=== PATIENT | female | born 1995 | race Caucasian/White ===

== ENCOUNTER 2019-07-03 19:52 | Emergency (ER) | payer MEDICAID, OTHER ==
[2019-07-03 20:36] VITALS: BP 105/66; PULSE 91; O2SAT 95
[2019-07-03] MEDS ORDERED: Adacel Vial IM ONE ×2 (21:10→21:13)
[2019-07-03] MEDS ORDERED: BACIGUENT PACKET ONE (21:35)
--- NOTE | 2019-07-03 21:40 | ERPHSYRPT ---
- History of Present Illness Time Seen by Provider: 07/03/19 21:40 Source: patient, family Exam Limitations: no limitations Patient Subjective Stated Complaint: pt states, "I was washing dishes and cut my hand on a knife". Triage Nursing Assessment: Laceration to rt wrist 4.0 cm L x 0.7 cm W x 0.2 cm D. Laceration was cleansed with NS and hibiclens, guaze covering at this time, not currently bleeding. Wound is beefy red and clean/healthy. Lungs clear, heart tones reg, abd soft with active bs x4 quad, nontender. Physician History: pt accidently cut her right distal forearm no other injuries - tendon fuction/ neurovasc intact without FB after irrigation and probing of wound Quality: painful Severity: moderate Location: extremities Possible Causes: other (incised wound right forearm) Associated Symptoms: denies symptoms Allergies/Adverse Reactions: No Known Drug Allergies Allergy (Unverified 07/03/19 20:48) Hx Tetanus, Diphtheria Vaccination/Date Given: No Hx Influenza Vaccination/Date Given: No Hx Pneumococcal Vaccination/Date Given: No Immunizations Up to Date: No - Review of Systems Constitutional: No Fever, No Chills Eyes: No Symptoms Ears, Nose, & Throat: No Symptoms Respiratory: No Cough, No Dyspnea Cardiac: No Chest Pain, No Edema, No Syncope Abdominal/Gastrointestinal: No Abdominal Pain, No Nausea, No Vomiting, No Diarrhea Genitourinary Symptoms: No Dysuria Musculoskeletal: No Back Pain, No Neck Pain Skin: Other (lac right forearm distal), No Rash Neurological: No Dizziness, No Focal Weakness, No Sensory Changes Psychological: No Symptoms Endocrine: No Symptoms All Other Systems: Reviewed and Negative - Past Medical History Pertinent Past Medical History: Yes Neurological History: No Pertinent History ENT History: No Pertinent History Cardiac History: No Pertinent History Respiratory History: No Pertinent History Endocrine Medical History: No Pertinent History Musculoskeletal History: No Pertinent History GI Medical History: Hernia History: No Pertinent History Psycho-Social History: Anxiety Female Reproductive Disorders: Endometriosis, Other Other Medical History: PCOS - Past Surgical History Past Surgical History: Yes Neuro Surgical History: No Pertinent History Cardiac: No Pertinent History Respiratory: No Pertinent History Gastrointestinal: Hernia Repair Genitourinary: No Pertinent History Musculoskeletal: No Pertinent History Female Surgical History: No Pertinent History - Social History Smoking Status: Current every day smoker How long have you smoked: 4 yrs Exposure to second hand smoke: Yes Drug Use: none Patient Lives Alone: No - Female History Hx Last Menstrual Period: 06/19/19 Hx Now: No - Nursing Vital Signs Nursing Vital Signs: Initial Vital Signs Temperature 98.6 F 07/03/19 20:34 Pulse Rate 91 H 07/03/19 20:34 Respiratory Rate 17 07/03/19 20:34 Blood Pressure 105/66 07/03/19 20:34 O2 Sat by Pulse Oximetry 95 07/03/19 20:34 Pain Scale Pain Intensity 7 - Physical Exam General Appearance: no apparent distress, alert Eye Exam: PERRL/EOMI, eyes nml inspection Ears, Nose, Throat Exam: normal ENT inspection, pharynx normal, moist mucous membranes Neck Exam: normal inspection, non-tender, supple, full range of motion Respiratory Exam: normal breath sounds, lungs clear, No respiratory distress Cardiovascular Exam: regular rate/rhythm, normal heart sounds Gastrointestinal/Abdomen Exam: soft, mass, No tenderness Pelvic Exam: not done, deferred Rectal Exam: deferred, not done Back Exam: normal inspection, normal range of motion, No CVA tenderness, No vertebral tenderness Extremity Exam: normal range of motion, other (underlying bone nontender full ROM - lac right forearm) Neurologic Exam: alert, oriented x 3, cooperative, normal mood/affect, sensation nml, No motor deficits Skin Exam: normal color, warm, dry SpO2 Interpretation: normal SpO2: 95 Procedures - Laceration/Wound Repair Right Distal Arm Wound Location: Right, lower arm Wound Length (cm): 8 Wound's Depth, Shape: irregular, into subcut Wound Explored: clean Irrigated: Yes (ns 100 cc) Hibiclens Prep: Yes Anesthesia: local, 1% Lidocaine Volume Anesthetic (ccs): 4 Wound Debrided: minimal Wound Repaired With: sutures Suture Size/Type: 4-0, ethilon Number of Sutures: 9 (2 mattress 7 interupted) Layer Closure?: No Sterile Dressing Applied?: Yes Splint Applied?: No Sling Applied?: No - Course Nursing assessment & vital signs reviewed: Yes Ordered Tests: Medication Summary Discontinued Medications Generic Name Dose Route Start Last Admin Trade Name Freq PRN Reason Stop Dose Admin Bacitracin Zinc Confirm 07/03/19 21:35 Baciguent Packet Administered 07/03/19 21:36 Dose 1 gm .ROUTE .STK-MED ONE Diphtheria/Tetanus/Acell Pertussis 0.5 ml 07/03/19 21:10 Adacel Vial IM 07/03/19 21:11 .ONCE ONE Diphtheria/Tetanus/Acell Pertussis Confirm 07/03/19 21:13 Adacel Vial Administered 07/03/19 21:14 Dose 0.5 ml IM .STK-MED ONE - Progress Progress: improved, re-examined Counseled pt/family regarding: diagnosis, need for follow-up - Departure Departure Disposition: Home Clinical Impression: laceration right distal forearm Condition: Good Critical Care Time: No Referrals: REFUGIO RATLIFF [Primary Care Provider] - Instructions: Laceration Repair With Stitches (DC), Wound Care (DC) Additional Instructions: sutures may be removed in 10 days by your DrZeferino ; return meantime if any concerns. Prescriptions: Mupirocin [Bactroban OINTMENT] 22 gm TP BID #1 tube
[2019-07-03] MEDS ORDERED: BACIGUENT PACKET TP ONE (21:46)
== END 2019-07-03 22:00 | disposition home or self-care (01) ==
LOC: ED 19:52
DX: S51.811A Laceration without foreign body of right forearm, initial encounter (principal); W26.0XXA Contact with knife, initial encounter; Y93.G1 Activity, food preparation and clean up; Y92.090 Kitchen in other non-institutional residence as the place of occurrence of the external cause
CPT/HCPCS: 12004; 90471; 90715; 99283; A9270-GY

== ENCOUNTER 2019-08-09 10:30 | Day surgery (SDC) | payer OTHER ==
--- NOTE | 2019-08-06 11:22 | HP ---
DATE OF SURGERY: 08/09/2019 HISTORY OF PRESENT ILLNESS: The patient is a 24 year-old with right upper quadrant pain, nausea, vomiting every night whatever she eats. No jaundice. Abdomen soft, mild tenderness right upper quadrant. PAST MEDICAL HISTORY: She denies any chronic illnesses. PAST SURGICAL HISTORY: History of some sort of naval hernia repair as a young child. MEDICATIONS: None. ALLERGIES: NKDA. FAMILY HISTORY: Negative in regards to this problem. SOCIAL HISTORY: Half pack per day smoking, denies alcohol abuse. REVIEW OF SYSTEMS: Fourteen systems reviewed per admission assessment. No chest pain or palpitations other systems negative or noncontributory as above and per preadmission questionnaire. PHYSICAL EXAMINATION: GENERAL: No acute distress. HEENT: Sclerae nonicteric. NECK: No JVD. CHEST: Equal excursion, nonlabored breathing. Clear to auscultation. CVS: Regular rate and rhythm. ABDOMEN: Soft, some tenderness right upper quadrant. No peritoneal signs. EXTREMITIES: No significant edema. NEURO: Alert, oriented, moving extremities symmetrically. No gross motor deficits noted. LAB DATA AND TESTS: Ultrasound showed thickening of the gallbladder with cholelithiasis. IMPRESSION: Symptomatic cholelithiasis, probable chronic cholecystitis. I feel the patient will benefit from cholecystectomy. Risks and benefits explained in detail including but not limited to bleeding or infection, risk of trocar injury or hernia, small risk of bowel, bladder or blood vessel injury, small risk of bile leak, bile duct injury, retained stone or sludge possibly requiring further procedure either open or ERCP, general risk of anesthesia, deep venous thrombosis, pulmonary embolism, pneumonia, perioperative risk of aches, pains, bloating, constipation and/or loose stools possibly even chronic in nature. She understands and agrees to the planned procedure, will proceed with laparoscopic cholecystectomy possible open as an outpatient.
[~2019-08-09 10:30] MED LIST: DIPRIVAN 200 MG/20 ML IV ONE; Lactated Ringers 1,000 ML IV ONE; Lactated Ringers 1,000 ML IV SCH; MEFOXIN 2 GM PREMIX** 2 GM/50 ML ML IV ONE; SUBLIMAZE 250 MCG/5 ML ONE; Sensorcaine 0.25% 10 ML ONE; Versed 2 MG/2 ML Injection ONE; Zemuron 100 MG/10 ML ONE
[2019-08-09] MEDS ORDERED: Zofran 4 MG/2 ML VIAL ONE (12:28)
[2019-08-09] MEDS ORDERED: TORAdol 30 mg Injection ONE (12:28)
[2019-08-09] MEDS ORDERED: BRIDION 200MG/2ML IV ONE (12:31)
[2019-08-09] MEDS ORDERED: DILAUDID 2 MG INJECTION ONE (12:49)
[2019-08-09] MEDS ORDERED: SUBLIMAZE 100 MCG/2 ML ONE (13:36)
[2019-08-09] MEDS ORDERED: Compazine 10 MG/2 ML ONE (13:58)
--- NOTE | 2019-08-09 15:09 | OP ---
SURGERY DATE/TIME: 08/09/2019 1203 PREOPERATIVE DIAGNOSIS: Symptomatic cholelithiasis, chronic cholecystitis. POSTOPERATIVE DIAGNOSIS: Symptomatic cholelithiasis, severe chronic cholecystitis. PROCEDURE: Laparoscopic cholecystectomy. SURGEON: Dr. Lupillo Neely. ANESTHESIA: General. ESTIMATED BLOOD LOSS: Minimal. INDICATIONS: As noted above. Risks and benefits explained in detail but not limited to and consent obtained. DESCRIPTION OF PROCEDURE AND FINDINGS: The patient was taken to the operating room. General anesthesia induced. Abdomen prepped and draped in the usual sterile fashion. After official time out and no disagreement with planned procedure, a transverse incision made at the supraumbilical area. Fascia grasped and pulled upward. Veress needle inserted and tested with saline. Pneumoperitoneum accomplished insufflating opening pressure of 0-15. A 5 mm bladeless port and camera inserted without difficulty followed by two - 5 mm right upper quadrant ports and 5 mm epigastric port. There was no evidence of any intra-abdominal injury secondary to trocar insertion. Gallbladder is grasped. It had quite thick wall that was packed full of moderate-sized stones particularly towards the fundus. Dissection carried posterior, lateral to anterior fashion. It had extensive chronic inflammatory reaction. Slowly and carefully cystic duct and infundibular junction slowly and carefully skeletonized until the critical view obtained both anteriorly and posteriorly. She had a quite vascular gallbladder requiring clipping some side branches off the cystic artery directly on the gallbladder wall as necessary. Gallbladder is slowly and carefully dissected free from its dense concrete attachments to the liver bed staying directly on the gallbladder wall, this took some time. One of the graspers tore a small hole in the gallbladder. There was no evidence of any large stone spillage. Some bile spillage suctioned irrigated clear. Gallbladder dissected free. Just prior to releasing from final attachments to the anterior edge of the liver, the liver bed re-inspected. Clips noted to be in place in cystic duct and cystic artery stumps. There were no signs of any active bleeding or bile leakage from the liver bed itself. Gallbladder released from final attachments, placed in the EndoCatch bag pulled up to the supraumbilical port site. Given the large stones and thick walled gallbladder, it was necessary to enlarge the fascial defect slightly to allow the bag to be pulled free. Gallbladder bag was able to be pulled free. At this point port had been replaced. Copious amount of irrigation accomplished lateral to the liver and subhepatic space irrigating until clear. Liver bed re-inspected. Clips noted in place in cystic duct and cystic artery stumps. There were no signs of any active bleeding or bile leakage. It was felt there is no benefit from drain placement. At this point as it was too large to close with puncture closure device and pneumoperitoneum decompressed. The port is removed. Fascial defect closed under direct vision with 0 Vicryl figure-of-8 fashion. Copious amount of irrigation irrigating clear. Skin incision closed with 4-0 Vicryl. Steri-Strips and sterile dressing applied. The patient tolerated the procedure well. There were no immediate complications. Findings discussed with the patient out in the waiting room. She was transferred to the recovery room in stable condition.
[2019-08-09 15:26] VITALS: O2SAT 98
[2019-08-09 15:30] VITALS: BP 116/73; PULSE 60
== END 2019-08-09 15:10 | disposition home or self-care (01) ==
LOC: SDC 10:30
PROVIDERS: ATTEND Surgery
DX: K80.10 Calculus of gallbladder with chronic cholecystitis without obstruction (principal)
CPT/HCPCS: 84703; J0694; J1170; J1885; J2250; J2405; J2704; J3010

== ENCOUNTER 2024-05-25 20:01 | Emergency (ER) | payer OTHER ==
[2024-05-25 20:23] VITALS: TEMP 98.1
[2024-05-25] MEDS ORDERED: Sodium Chloride 0.9% 1000 ML 1,000 ML ONE (20:28)
[2024-05-25 20:54] LABS: Absolute Neutrophil Ct (ANC) 6.59 x10^3/uL (1.56-6.13); BASOPHIL % 0.4 % (0.1-1.2); Basophil (Absolute #) 0.03 x10^3/uL (0.01-0.08); Eosinophil % 1.4 % (0.7-5.8); Eosinophil (Absolute #) 0.11 x10^3/uL (0.04-0.36); Hematocrit 43.6 % (34.1-44.9); Hemoglobin 15.4 g/dL (11.2-15.7); IMMATURE GRAN # 0.03 x10^3u/L (0.001-0.031); IMMATURE GRAN % 0.4 % (0.001-0.429); Lymphocyte (Absolute #) 0.78 x10^3/uL (1.18-3.74); Lymphocytes % 9.7 % (19.3-51.7); Mean Cell Volume 87.2 fL (79.4-94.8); Mean Corpuscular Hemoglobin 30.8 pg (25.6-32.2); Mean Corpuscular Hgb Concent. 35.3 g/dL (32.2-35.5); Mean Platelet Volume 10.1 fL (9.4-12.3); Monocyte (Absolute #) 0.49 x10^3/uL (0.24-0.86); Monocytes % 6.1 % (4.7-12.5); Platelet Count 244 x10^3/uL (182-369); Red Cell Distribution Width 12.9 % (11.7-14.4)
[2024-05-25] MEDS: Sodium Chloride 0.9% 1000 ML 1,000 ML IV STA (20:56)
[2024-05-25 21:01] LABS: HCG URINE TEST NEGATIVE (NEGATIVE)
[2024-05-25 21:04] LABS: Appearance Clear (Clear); Bacteria None Seen /HPF (None Seen); Bilirubin Negative (Negative); Blood Small (Negative); Epithelial Cells Rare /HPF (None Seen); Glucose, Urine Negative (Negative); Hyaline Casts NONE SEEN /LPF (0-2); Ketones Negative (Negative); Leukocyte Esterase Trace (Negative); Nitrite Negative (Negative); Protein,Urine Dip Negative (Negative); Specific Gravity 1.015 (1.005-1.030); Urobilinogen 0.2 mg/dL (0.2); WBC 0-2 /HPF (0-5)
[2024-05-25 21:06] VITALS: RESP 16
[2024-05-25 21:08] LABS: ALBUMIN 4.6 g/dL (3.5-5.0); ALKALINE PHOSPHATASE 76 U/L (38-126); ANION GAP 14.2 MEQ/L (5-15); BLOOD UREA NITROGEN 9 mg/dL (7-17); CHLORIDE 107 mmol/L (98-107); Calcium 9.6 mg/dL (8.4-10.2); Carbon Dioxide 20 mmol/L (22-30); Creatinine 1 0.65 mg/dL (0.52-1.04); EST GLOMERULAR FILTRATION RATE 124.5 ML/MIN; ETHYL ALCOHOL < 10 mg/dL (0-10); Glucose 110 mg/dL (74-106); Potassium 3.8 mmol/L (3.5-5.1); SGOT/AST 30 U/L (14-36); SGPT/ALT 27 U/L (0-35); SODIUM 137 mmol/L (135-145); Total Protein 7.9 g/dL (6.3-8.2)
[2024-05-25 21:13] LABS: ADD URINE CULTURE? NO (NO)
[2024-05-25 21:18] LABS: Amphetamine,Urine NEGATIVE (NEGATIVE); Barbiturate,Urine NEGATIVE (NEGATIVE); Benzodiazepine,Urine NEGATIVE (NEGATIVE); Cocaine,Urine NEGATIVE (NEGATIVE); Methadone,Urine NEGATIVE (NEGATIVE); Opiate,Urine NEGATIVE (NEGATIVE); PCP,Urine NEGATIVE (NEGATIVE); THC,Urine POSITIVE (NEGATIVE)
--- NOTE | 2024-05-25 21:42 | ERPHSYRPT ---
- History of Present Illness Time Seen by Provider: 05/25/24 20:30 Source: patient Exam Limitations: no limitations Patient Subjective Stated Complaint: I'm very anxious today, I woke up like that today. I passed out about a month ago and was worked up at [facility] and they found nothing, but since then I've been very anxious and I don't know what to do about it. They started me back on my Lexapro but it doesn't seem to help. Triage Nursing Assessment: pt ambulated into ER without diff, spouse at bedside. Pt c/o being very anxious and had an anxiety attack today while driving and has not ever felt this way. She was recently just started back on her Lexapro but pt doesn't feel it is working for her. Physician History: 28-year-old female presents to our ED for evaluation of dizziness. Patient states she was having an anxiety/panic attack. Patient was hyperventilating. Patient felt as though she was going to pass out which made her extremely anxious. Patient states she had an episode of syncope a couple months back which was worked up. Patient states her workup was nonremarkable. Patient has no medical conditions to speak of. No chest pain or shortness of breath. No nausea vomiting or diaphoresis. Patient otherwise feels well. She voices no other complaints or concerns at this time. Portions of this note were created with voice recognition technology. There may be grammatical, spelling, punctuation or sound alike errors Timing/Duration: today Severity: moderate Associated Symptoms: denies symptoms Allergies/Adverse Reactions: methylphenidate [From Ritalin] Allergy (Severe, Verified 05/25/24 20:28) Home Medications: Escitalopram Oxalate [Lexapro] 20 mg PO DAILY 05/25/24 [History] Hx Tetanus, Diphtheria Vaccination/Date Given: No Hx Influenza Vaccination/Date Given: No Hx Pneumococcal Vaccination/Date Given: No Travel Risk - International Travel Have you traveled outside of the country in past 3 weeks: No - Emerging Infectious Disease Are you exhibiting symptoms associated with any current EIDs: No - Review of Systems Constitutional: No Symptoms, No Fever, No Chills Eyes: No Symptoms Ears, Nose, & Throat: No Symptoms Respiratory: No Symptoms, No Cough, No Dyspnea Cardiac: No Symptoms, No Chest Pain, No Edema, No Syncope Abdominal/Gastrointestinal: No Symptoms, No Abdominal Pain, No Nausea, No V omiting, No Diarrhea Genitourinary Symptoms: No Symptoms, No Dysuria Musculoskeletal: No Symptoms, No Back Pain, No Neck Pain Skin: No Symptoms, No Rash Neurological: No Symptoms, No Dizziness, No Focal Weakness, No Sensory Changes Psychological: No Symptoms Endocrine: No Symptoms Hematologic/Lymphatic: No Symptoms Immunological/Allergic: No Symptoms All Other Systems: Reviewed and Negative - Past Medical History Pertinent Past Medical History: Yes Neurological History: No Pertinent History ENT History: No Pertinent History Cardiac History: No Pertinent History Respiratory History: No Pertinent History Endocrine Medical History: No Pertinent History Musculoskeletal History: No Pertinent History GI Medical History: Gallbladder Disease, Hernia History: No Pertinent History Psycho-Social History: Anxiety, Depression Female Reproductive Disorders: Endometriosis, Other Other Medical History: PCOS - Past Surgical History Past Surgical History: Yes Neuro Surgical History: No Pertinent History Cardiac: No Pertinent History Respiratory: No Pertinent History Gastrointestinal: Cholecystectomy, Hernia Repair Genitourinary: No Pertinent History Musculoskeletal: No Pertinent History Female Surgical History: No Pertinent History Other Surgical History: hernia age 6 - Female History Hx Last Menstrual Period: 04/23/24 Hx Now: No - Social History Smoking Status: Current every day smoker How long have you smoked: 6 yrs Exposure to second hand smoke: Yes Drug Use: marijuana Patient Lives Alone: No - Social Determinants of Health Will the patient participate in the screening: Yes Do you worry about a steady place to live?: No Do you have any problems with any of the following?: No known problems In the past 12 months,have you had to go without utilities?: No Transportation Issues: No Has anyone in your support network made you feel unsafe?: No Have you or anyone in your house had to go without enough: No - Nursing Vital Signs Nursing Vital Signs: Initial Vital Signs Temperature 98.1 F 05/25/24 20:21 Pulse Rate 92 H 05/25/24 20:21 Respiratory Rate 20 05/25/24 20:21 Blood Pressure 129/95 05/25/24 20:21 O2 Sat by Pulse Oximetry 100 05/25/24 20:21 Pain Scale Pain Intensity 0 - Physical Exam General Appearance: no apparent distress, alert Eye Exam: PERRL/EOMI, eyes nml inspection Ears, Nose, Throat Exam: normal ENT inspection, TMs normal, pharynx normal, moist mucous membranes Neck Exam: normal inspection, non-tender, supple, full range of motion Respiratory Exam: normal breath sounds, lungs clear, airway intact, No respir atory distress Cardiovascular Exam: regular rate/rhythm, normal heart sounds, normal peripheral pulses Gastrointestinal/Abdomen Exam: soft, normal bowel sounds, No tenderness, No mass Back Exam: normal inspection, normal range of motion, No CVA tenderness, No vertebral tenderness Extremity Exam: normal inspection, normal range of motion, pelvis stable Neurologic Exam: alert, oriented x 3, cooperative, normal mood/affect, sensation nml, No motor deficits Skin Exam: normal color, warm, dry, No rash Lymphatic Exam: No adenopathy SpO2 Interpretation: normal SpO2: 98 O2 Delivery: Room Air - Course Nursing assessment & vital signs reviewed: Yes EKG Interpreted by Me: RATE (86), Sinus Rhythm, NORMAL AXIS, NORMAL INTERVALS - CT Exams Head CT Interpretation: Tele-radiologist Report (No acute findings) Ordered Tests: Active Orders 24 hr Category Date Time Status [employer] STAT Care 05/25/24 20:20 Active Clean Catch Urine Specimen STAT Care 05/25/24 20:19 Active EKG-ER Only STAT Care 05/25/24 20:19 Active IV Insertion STAT Care 05/25/24 20:19 Active HEAD WITHOUT CONTRAST [CT] Stat Exams 05/25/24 21:23 Taken CBC W DIFF Stat Lab 05/25/24 20:45 Completed CMP Stat Lab 05/25/24 20:45 Completed ETHYL ALCOHOL Stat Lab 05/25/24 20:45 Completed HCG QUALITATIVE, URINE Stat Lab 05/25/24 20:21 Completed Lactic Acid Stat Lab 05/25/24 20:54 Completed TROPONIN Q4H Lab 05/25/24 21:30 Completed TROPONIN Q4H Lab 05/26/24 02:00 Ordered TROPONIN Q4H Lab 05/26/24 06:00 Ordered UA W/RFX UR CULTURE Stat Lab 05/25/24 20:21 Completed Urine Triage Profile Stat Lab 05/25/24 20:21 Completed Medication Summary Discontinued Medications Generic Name Dose Route Start Last Admin Trade Name Freq PRN Reason Stop Dose Admin Diphenhydramine HCl 25 mg 05/25/24 22:27 05/25/24 22:31 Diphenhydramine Hcl 25 Mg Capsule PO 05/25/24 22:28 25 mg STAT ONE Administration Diphenhydramine HCl Confirm 05/25/24 22:29 Diphenhydramine Hcl 25 Mg Capsule Administered 05/25/24 22:30 Dose 25 mg .ROUTE .STK-MED ONE Sodium Chloride 1,000 mls @ 999 mls/hr 05/25/24 20:19 05/25/24 21:57 Sodium Chloride 0.9% 1000 Ml IV 05/25/24 21:19 Infused .Q1H1M STA Infusion Sodium Chloride Confirm 05/25/24 20:28 Sodium Chloride 0.9% 1000 Ml Administered 05/25/24 20:29 Dose 1,000 mls @ ud .ROUTE .STK-MED ONE Terbutaline Sulfate 0.25 mg 05/25/24 22:02 05/25/24 22:05 Terbutaline Sulfate 1 Mg/Ml Vial SQ 05/25/24 22:03 Not Given STAT ONE Lab/Rad Data: Laboratory Result Diagrams 05/25/24 20:45 05/25/24 20:45 Laboratory Results 05/25/24 05/25/24 05/25/24 Range/Units 21:30 20:54 20:45 WBC (3.98-10.04) x10^3/uL RBC (3.93-5.22) x10^6/uL Hgb (11.2-15.7) g/dL Hct (34.1-44.9) % MCV (79.4-94.8) fL MCH (25.6-32.2) pg MCHC (32.2-35.5) g/dL RDW (11.7-14.4) % Plt Count (182-369) x10^3/uL MPV (9.4-12.3) fL Gran % (34.0-71.1) % Immature Gran % (Auto) (0.001-0.429) % Nucleat RBC Rel Count (0.00-0.2) % Eos # (Auto) (0.04-0.36) x10^3/uL Immature Gran # (Auto) (0.001-0.031) x10^3u/L Absolute Lymphs (auto) (1.18-3.74) x10^3/uL Absolute Monos (auto) (0.24-0.86) x10^3/uL Absolute Nucleated RBC (0.00-0.012) x10^3u/L Lymphocytes % (19.3-51.7) % Monocytes % (4.7-12.5) % Eosinophils % (0.7-5.8) % Basophils % (0.1-1.2) % Absolute Granulocytes (1.56-6.13) x10^3/uL Basophils # (0.01-0.08) x10^3/uL Sodium 137 (135-145) mmol/L Potassium 3.8 (3.5-5.1) mmol/L Chloride 107 (98-107) mmol/L Carbon Dioxide 20 L (22-30) mmol/L Anion Gap 14.2 (5-15) MEQ/L BUN 9 (7-17) mg/dL Creatinine 0.65 (0.52-1.04) mg/dL Estimated GFR 124.5 ML/MIN Glucose 110 H (74-106) mg/dL Lactic Acid 1.9 (0.4-2.0) Calcium 9.6 (8.4-10.2) mg/dL Total Bilirubin 0.70 (0.2-1.3) mg/dL AST 30 (14-36) U/L ALT 27 (0-35) U/L Alkaline Phosphatase 76 (38-126) U/L Troponin I < 0.012 (0.000-0.033) ng/mL Serum Total Protein 7.9 (6.3-8.2) g/dL Albumin 4.6 (3.5-5.0) g/dL Urine Color (Yellow) Urine Appearance (Clear) Urine pH (4.6-8.0) Ur Specific [place] (1.005-1.030) Urine Protein (Negative) Urine Glucose (UA) (Negative) mg/dL Urine Ketones (Negative) Urine Blood (Negative) Urine Nitrite (Negative) Urine Bilirubin (Negative) Urine Urobilinogen (0.2) mg/dL Ur Leukocyte Esterase (Negative) U Hyaline Cast (Auto) (0-2) /LPF Urine Microscopic RBC (0-5) /HPF Urine Microscopic WBC (0-5) /HPF Ur Epithelial Cells (None Seen) /HPF Urine Bacteria (None Seen) /HPF Urine Culture Reflexed (NO) Urine HCG, Qual (NEGATIVE) Urine Opiates Level (NEGATIVE) Ur Methadone (NEGATIVE) Urine Barbiturates (NEGATIVE) Ur Phencyclidine (PCP) (NEGATIVE) Urine Amphetamine (NEGATIVE) U Benzodiazepine Level (NEGATIVE) Urine Cocaine (NEGATIVE) Urine Marijuana (THC) (NEGATIVE) Ethyl Alcohol < 10 (0-10) mg/dL 05/25/24 05/25/24 05/25/24 Range/Units 20:45 20:21 20:21 WBC 8.0 (3.98-10.04) x10^3/uL RBC 5.00 (3.93-5.22) x10^6/uL Hgb 15.4 (11.2-15.7) g/dL Hct 43.6 (34.1-44.9) % MCV 87.2 (79.4-94.8) fL MCH 30.8 (25.6-32.2) pg MCHC 35.3 (32.2-35.5) g/dL RDW 12.9 (11.7-14.4) % Plt Count 244 (182-369) x10^3/uL MPV 10.1 (9.4-12.3) fL Gran % 82.0 H (34.0-71.1) % Immature Gran % (Auto) 0.4 (0.001-0.429) % Nucleat RBC Rel Count 0.0 (0.00-0.2) % Eos # (Auto) 0.11 (0.04-0.36) x10^3/uL Immature Gran # (Auto) 0.03 (0.001-0.031) x10^3u/L Absolute Lymphs (auto) 0.78 L (1.18-3.74) x10^3/uL Absolute Monos (auto) 0.49 (0.24-0.86) x10^3/uL Absolute Nucleated RBC 0.00 (0.00-0.012) x10^3u/L Lymphocytes % 9.7 L (19.3-51.7) % Monocytes % 6.1 (4.7-12.5) % Eosinophils % 1.4 (0.7-5.8) % Basophils % 0.4 (0.1-1.2) % Absolute Granulocytes 6.59 H (1.56-6.13) x10^3/uL Basophils # 0.03 (0.01-0.08) x10^3/uL Sodium (135-145) mmol/L Potassium (3.5-5.1) mmol/L Chloride (98-107) mmol/L Carbon Dioxide (22-30) mmol/L Anion Gap (5-15) MEQ/L BUN (7-17) mg/dL Creatinine (0.52-1.04) mg/dL Estimated GFR ML/MIN Glucose (74-106) mg/dL Lactic Acid (0.4-2.0) Calcium (8.4-10.2) mg/dL Total Bilirubin (0.2-1.3) mg/dL AST (14-36) U/L ALT (0-35) U/L Alkaline Phosphatase (38-126) U/L Troponin I (0.000-0.033) ng/mL Serum Total Protein (6.3-8.2) g/dL Albumin (3.5-5.0) g/dL Urine Color (Yellow) Urine Appearance (Clear) Urine pH (4.6-8.0) Ur Specific [place] (1.005-1.030) Urine Protein (Negative) Urine Glucose (UA) (Negative) mg/dL Urine Ketones (Negative) Urine Blood (Negative) Urine Nitrite (Negative) Urine Bilirubin (Negative) Urine Urobilinogen (0.2) mg/dL Ur Leukocyte Esterase (Negative) U Hyaline Cast (Auto) (0-2) /LPF Urine Microscopic RBC (0-5) /HPF Urine Microscopic WBC (0-5) /HPF Ur Epithelial Cells (None Seen) /HPF Urine Bacteria (None Seen) /HPF Urine Culture Reflexed (NO) Urine HCG, Qual NEGATIVE (NEGATIVE) Urine Opiates Level NEGATIVE (NEGATIVE) Ur Methadone NEGATIVE (NEGATIVE) Urine Barbiturates NEGATIVE (NEGATIVE) Ur Phencyclidine (PCP) NEGATIVE (NEGATIVE) Urine Amphetamine NEGATIVE (NEGATIVE) U Benzodiazepine Level NEGATIVE (NEGATIVE) Urine Cocaine NEGATIVE (NEGATIVE) Urine Marijuana (THC) POSITIVE A (NEGATIVE) Ethyl Alcohol (0-10) mg/dL 05/25/24 Range/Units 20:21 WBC (3.98-10.04) x10^3/uL RBC (3.93-5.22) x10^6/uL Hgb (11.2-15.7) g/dL Hct (34.1-44.9) % MCV (79.4-94.8) fL MCH (25.6-32.2) pg MCHC (32.2-35.5) g/dL RDW (11.7-14.4) % Plt Count (182-369) x10^3/uL MPV (9.4-12.3) fL Gran % (34.0-71.1) % Immature Gran % (Auto) (0.001-0.429) % Nucleat RBC Rel Count (0.00-0.2) % Eos # (Auto) (0.04-0.36) x10^3/uL Immature Gran # (Auto) (0.001-0.031) x10^3u/L Absolute Lymphs (auto) (1.18-3.74) x10^3/uL Absolute Monos (auto) (0.24-0.86) x10^3/uL Absolute Nucleated RBC (0.00-0.012) x10^3u/L Lymphocytes % (19.3-51.7) % Monocytes % (4.7-12.5) % Eosinophils % (0.7-5.8) % Basophils % (0.1-1.2) % Absolute Granulocytes (1.56-6.13) x10^3/uL Basophils # (0.01-0.08) x10^3/uL Sodium (135-145) mmol/L Potassium (3.5-5.1) mmol/L Chloride (98-107) mmol/L Carbon Dioxide (22-30) mmol/L Anion Gap (5-15) MEQ/L BUN (7-17) mg/dL Creatinine (0.52-1.04) mg/dL Estimated GFR ML/MIN Glucose (74-106) mg/dL Lactic Acid (0.4-2.0) Calcium (8.4-10.2) mg/dL Total Bilirubin (0.2-1.3) mg/dL AST (14-36) U/L ALT (0-35) U/L Alkaline Phosphatase (38-126) U/L Troponin I (0.000-0.033) ng/mL Serum Total Protein (6.3-8.2) g/dL Albumin (3.5-5.0) g/dL Urine Color Yellow (Yellow) Urine Appearance Clear (Clear) Urine pH 7.0 (4.6-8.0) Ur Specific [place] 1.015 (1.005-1.030) Urine Protein Negative (Negative) Urine Glucose (UA) Negative (Negative) mg/dL Urine Ketones Negative (Negative) Urine Blood Small A (Negative) Urine Nitrite Negative (Negative) Urine Bilirubin Negative (Negative) Urine Urobilinogen 0.2 (0.2) mg/dL Ur Leukocyte Esterase Trace A (Negative) U Hyaline Cast (Auto) NONE SEEN (0-2) /LPF Urine Microscopic RBC 3-5 (0-5) /HPF Urine Microscopic WBC 0-2 (0-5) /HPF Ur Epithelial Cells Rare (None Seen) /HPF Urine Bacteria None Seen (None Seen) /HPF Urine Culture Reflexed NO (NO) Urine HCG, Qual (NEGATIVE) Urine Opiates Level (NEGATIVE) Ur Methadone (NEGATIVE) Urine Barbiturates (NEGATIVE) Ur Phencyclidine (PCP) (NEGATIVE) Urine Amphetamine (NEGATIVE) U Benzodiazepine Level (NEGATIVE) Urine Cocaine (NEGATIVE) Urine Marijuana (THC) (NEGATIVE) Ethyl Alcohol (0-10) mg/dL - Progress Progress: improved Progress Note: Patient reassessed. Symptoms resolved. Repeat neuroexam within normal limits. CT head nonremarkable. Laboratory workup essentially nonremarkable. Patient given Benadryl to help take the edge off anxiety. Patient feels well states she is ready for discharge. at bedside. They voiced no other complaints or concerns at this time. Portions of this note were created with voice recognition technology. There may be grammatical, spelling, punctuation or sound alike errors Complexity problem addressed is moderate acute complicated. No critical care time. Complex of data reviewed and analyzed is moderate. Test ordered test reviewed results analyzed and correlated clinically with history and physical exam. Risk of complication and or risk morbidity/mortality patient management is low. Vital stable time spent to discharge patient is approximately 15 minutes. Plan of care established for shared decision making. No social determinants of health present impede follow-up. Portions of this note were created with voice recognition technology. There may be grammatical, spelling, punctuation or sound alike errors 05/25/24 22:36 Counseled pt/family regarding: lab results, diagnosis, need for follow-up, rad results - Departure Departure Disposition: Home Clinical Impression: Anxiety, Hyperventilating, Dizziness Condition: Stable Critical Care Time: No Referrals: DOCTOR,NO FAMILY [Primary Care Provider] - Follow up/PCP as directed GUERLINE CHURCH DO [ACTIVE STAFF] - Follow up/PCP as directed Additional Instructions: Discharge/Care Plan NAIMISHEL ARIAS was seen on 05/25/24 in the Emergency Room. The patient was counseled regarding Diagnosis,Lab results, Imaging studies, need for follow up and when to return to the Emergency Room. Prescriptions given: Discharge Note I have spoken with the patient and/or caregivers. I have explained the patient's condition, diagnosis and treatment plan based on the information available to me at this time. I have answered the patient's and/or caregiver's questions and addressed any concerns. The patient and/or caregivers have as good understanding of the patient's diagnosis, condition and treatment plan as can be expected at this point. The vital signs have been stable. The patient's condition is stable and appropriate for discharge from the emergency department. The patient will pursue further outpatient evaluation with the primary care physician or other designated or consulting physician as outlined in the discharge instructions. The patient and/or caregivers are agreeable to this plan of care and follow-up instructions have been explained in detail. The patient and/or caregivers have received these instruction. The patient/and or caregivers are aware that any significant change in condition or worsening of symptoms marino uld prompt an immediate return to this or the closest emergency department or call 911.
[2024-05-25] MEDS: BRETHINE 1 MG/ML SQ ONE (22:05)
[2024-05-25] MEDS ORDERED: BENADRYL 25 MG CAPSULE ONE (22:29)
[2024-05-25] MEDS: BENADRYL 25 MG CAPSULE PO ONE (22:31)
[2024-05-25 22:53] VITALS: PULSE 80
[2024-05-25 22:54] VITALS: BP 94/72; O2SAT 100
--- NOTE | 2024-05-26 08:54 | XRAY ---
Indication: Dizziness 3 weeks. Multiple contiguous axial images obtained through the head without contrast. Comparison: None Normal appearing brain parenchyma, ventricles, and bony calvarium. Visualized paranasal sinuses and mastoid air cells are clear. Impression: Normal CT head without contrast exam.
== END 2024-05-25 22:53 | disposition home or self-care (01) ==
LOC: ED 20:01
DX: F41.9 Anxiety disorder, unspecified (principal); R06.4 Hyperventilation; R42 Dizziness and giddiness; Z79.899 Other long term (current) drug therapy; Z72.0 Tobacco use
CPT/HCPCS: 36000; 36415; 70450; 80053; 80307; 81001; 81025; 82077; 83605; 84484; 85025; 93005; 93041; 99284; A9270-GY